=== PATIENT | female | born 1975 | race Caucasian/White ===

== ENCOUNTER → 2017-06-10 | Outpatient (CLI) | payer OTHER | END | disposition home or self-care (01) | LOC: CFH 11:21 | PROVIDERS: ATTEND Internal Medicine | DX: Z12.31 Encounter for screening mammogram for malignant neoplasm of breast (principal) | CPT/HCPCS: 77063; 77067 ==

== ENCOUNTER → 2018-06-05 | Outpatient (CLI) | payer OTHER ==
[2018-06-05 08:13] LABS: ALANINE AMINOTRANSFERASE 46 U/L (12-78); ALBUMIN 3.9 g/dL (3.4-5.0); ANION GAP 9 mmol/L (5-15); CALCIUM 9.2 mg/dL (8.5-10.1); CHLORIDE 108 mmol/L (98-107); CHOLESTEROL, TOTAL 232 mg/dL (140-239); CREATININE 0.75 mg/dL (0.55-1.02)
[2018-06-05 08:15] LABS: ALKALINE PHOSPHATASE 83 U/L (45-117); BILIRUBIN,TOTAL 0.1 mg/dL (0.2-1.0); HDL CHOL % 20 % (28-40); HDL CHOLESTEROL (DIRECT) 46 mg/dL (40-60); LDL CHOLESTEROL,CALCULATED 158 mg/dL (54-169); LDL/HDL RATIO 3.4 (0.5-3.0); TOTAL PROTEIN 7.6 g/dL (6.4-8.2); TRIGLYCERIDES 139 mg/dL (50-200); VLDL CHOLESTEROL 28 mg/dL (0-25)
[2018-06-05 08:30] LABS: HEMOGLOBIN A1C 6.3 % (4.2-6.3)
== END | disposition home or self-care (01) ==
LOC: LAB 07:46
PROVIDERS: ATTEND Internal Medicine
DX: E78.5 Hyperlipidemia, unspecified (principal); R73.02 Impaired glucose tolerance (oral)
CPT/HCPCS: 36415; 80053; 80061; 83036

== ENCOUNTER → 2018-06-27 | Outpatient (CLI) | payer OTHER | END | disposition home or self-care (01) | LOC: CFH 15:43 | PROVIDERS: ATTEND Internal Medicine | DX: Z12.31 Encounter for screening mammogram for malignant neoplasm of breast (principal) | CPT/HCPCS: 77063; 77067 ==

== ENCOUNTER 2019-05-04 14:20 | Emergency (ER) | payer OTHER ==
[~2019-05-04] VITALS: Ht 160 cm; Wt 96.8 kg
[2019-05-04 14:28] VITALS: BP 142/96
[2019-05-04] MEDS ORDERED: IBUPROFEN 200 MG TABLET ONE (15:33)
--- NOTE | 2019-05-04 15:36 | NUR ---
MEDS ADMIN PER JUN.
[2019-05-04] MEDS ORDERED: IBUPROFEN 600 MG TABLET PO ONE (16:00)
== END 2019-05-04 15:48 | disposition home or self-care (01) ==
LOC: ED 15:18
DX: S90.31XA Contusion of right foot, initial encounter (principal); G43.909 Migraine, unspecified, not intractable, without status migrainosus; K21.9 Gastro-esophageal reflux disease without esophagitis; X58.XXXA Exposure to other specified factors, initial encounter; Y93.89 Activity, other specified; Y92.89 Other specified places as the place of occurrence of the external cause; Y99.8 Other external cause status
CPT/HCPCS: 99283

== ENCOUNTER 2019-06-27 13:00 | Day surgery (SDC) | payer OTHER ==
[~2019-06-27] VITALS: Ht 160 cm; Wt 96.6 kg
[~2019-06-27 13:00] MED LIST: AMIT10TA PO; ATOR40TA78 PO; Biotin PO; CEFAZOLIN 1,000 MG ONE; Calcium PO; DEXAMETHASONE 4 MG/ML, 1ML ONE; DULA1.5P SQ; FREM225S SQ; INDO25CA22 PO; L-Lysine PO; MULT-658 PO; OMEP-110 PO; ONDANSETRON 2MG/ML, 2ML ONE; PROPOFOL 10 MG/ML, 20ML ONE; SCOPOLAMINE 1MG PATCH TD ONE; toradol PO
[2019-06-27 13:26] VITALS: BP 124/87
[2019-06-27] MEDS ORDERED: LACTATED RINGERS 1,000 ML IV SCH (13:32)
[2019-06-27 13:44] LABS: HCG UR SG 1.024 (1.003-1.030)
[2019-06-27] MEDS ORDERED: GABAPENTIN 300 MG CAPSULE PO ONE (14:00)
[2019-06-27] MEDS ORDERED: ACETAMINOPHEN 500 MG TABLET PO ONE (14:00)
[2019-06-27] MEDS ORDERED: SCOPOLAMINE 1MG PATCH TD ONE ×2 (15:00)
[2019-06-27] MEDS ORDERED: BUPIVACAINE LIPOSOME/PF 10ML INFIL ONE (15:02)
[2019-06-27] MEDS: MEPERIDINE/PF 25MG/ML,1ML IVPush PRN ×2 (15:59→16:22)
[2019-06-27] MEDS ORDERED: OXYcodone 5 MG/5 ML ORAL.SOL UDC PO PRN (16:00)
[2019-06-27] MEDS ORDERED: FENTANYL PF 100 MCG/2ML IV PRN (16:00)
[2019-06-27] MEDS ORDERED: hydrALAzine 20 MG/ML, 1ML IV PRN (16:00)
[2019-06-27] MEDS ORDERED: HALOPERIDOL 5 MG/ML IV PRN (16:00)
[2019-06-27] MEDS ORDERED: LABETALOL 5MG/ML, 20ML IV PRN (16:00)
[2019-06-27] MEDS ORDERED: PROMETHAZINE 25 MG/ML, 1ML IV PRN (16:00)
[2019-06-27] MEDS ORDERED: HYDROmorphone 1 MG/ML, 1ML INJ IVPush PRN (16:00)
[2019-06-27] MEDS ORDERED: MEPERIDINE/PF 25MG/ML,1ML ONE ×2 (16:01→16:17)
== END 2019-06-27 18:05 | disposition home or self-care (01) ==
LOC: OUT 13:00
PROVIDERS: ATTEND Surgery
DX: K64.4 Residual hemorrhoidal skin tags (principal); E11.9 Type 2 diabetes mellitus without complications; Z79.899 Other long term (current) drug therapy; Z88.5 Allergy status to narcotic agent; Z88.0 Allergy status to penicillin; Z88.8 Allergy status to other drugs, medicaments and biological substances; Z91.018 Allergy to other foods
CPT/HCPCS: 46260; 81025; 88304; 93005; J0690; J1100; J2175; J2405; J2550; J2704; J7120

== ENCOUNTER 2019-10-02 12:21 | Outpatient (CLI) | payer OTHER ==
[~2019-10-02 12:21] MED LIST changes: -CEFAZOLIN 1,000 MG ONE; -DEXAMETHASONE 4 MG/ML, 1ML ONE; -ONDANSETRON 2MG/ML, 2ML ONE; -PROPOFOL 10 MG/ML, 20ML ONE; -SCOPOLAMINE 1MG PATCH TD ONE; +toradol IM; -toradol PO
[2019-10-02] MEDS ORDERED: vitamin c PO (12:53)
[2019-10-02] MEDS ORDERED: RIME75TA PO (12:53)
[2019-10-02 13:29] LABS: BASOPHILS # (AUTO) 0.05 x10^3/uL (0-0.1); BASOPHILS % (AUTO) 1 % (0-1); EOSINOPHILS # (AUTO) 0.16 x10^3/uL (0-0.4); EOSINOPHILS % (AUTO) 2 % (1-7); LYMPHOCYTES # (AUTO) 1.92 x10^3/uL (1-3.4); LYMPHOCYTES % (AUTO) 27 % (22-44); MD NO; MEAN CORPUSCULAR HEMOGLOBIN 28.8 pg (27.0-34.8); MEAN CORPUSCULAR HGB CONC 33.3 g/dL (32.4-35.8); MEAN CORPUSCULAR VOLUME 86.3 fL (80-100); MEAN PLATELET VOLUME 8.2 fL (7.4-10.4); MONOCYTES # (AUTO) 0.54 x10^3/uL (0.2-0.8); MONOCYTES % (AUTO) 8 % (2-9); NEUTROPHILS # (AUTO) 4.37 x10^3/uL (1.8-6.8); NEUTROPHILS % (AUTO) 62 % (42-75); PLATELET COUNT 435 x10^3/uL (130-400); RED BLOOD COUNT 5.02 x10^6/uL (3.82-5.3); RED CELL DISTRIBUTION WIDTH 13.8 % (9.6-15.2)
[2019-10-02 13:31] LABS: MICROSCOPIC NOT IND
[2019-10-02 13:45] LABS: ANION GAP 5 mmol/L (5-15); CALCIUM 9.2 mg/dL (8.5-10.1); CHLORIDE 106 mmol/L (98-107)
[2019-10-02 13:51] LABS: ALANINE AMINOTRANSFERASE 49 U/L (12-78); ALKALINE PHOSPHATASE 120 U/L (45-117); BILIRUBIN,TOTAL 0.5 mg/dL (0.2-1.0); CREATININE 0.83 mg/dL (0.55-1.02); TOTAL PROTEIN 8.2 g/dL (6.4-8.2)
== END 2019-10-02 23:59 | disposition home or self-care (01) ==
LOC: STAR 12:21
PROVIDERS: ATTEND Obstetrics & Gynecology
DX: Z01.818 Encounter for other preprocedural examination (principal); N92.0 Excessive and frequent menstruation with regular cycle
CPT/HCPCS: 36415; 80053; 81003; 84702; 85025; U0001-CS

== ENCOUNTER 2019-10-09 12:46 | Day surgery (SDC) | payer OTHER ==
[~2019-10-09] VITALS: Ht 160 cm; Wt 102.3 kg
[~2019-10-09 12:46] MED LIST changes: +RIME75TA PO; +vitamin c PO
[2019-10-09] MEDS ORDERED: LACTATED RINGERS 1,000 ML IV SCH ×2 (13:17→15:00)
[2019-10-09 13:24] VITALS: BP 121/86
[2019-10-09] MEDS ORDERED: CHLORHEXIDINE 15 ML UDC ONE (13:25)
[2019-10-09] MEDS ORDERED: CHLORHEXIDINE 15 ML UDC MM ONE ×2 (13:30→15:00)
[2019-10-09 13:42] LABS: HCG UR SG 1.019 (1.003-1.030)
[2019-10-09] MEDS ORDERED: BUPIVACAINE/PF-EPI 0.25% 1:200K ONE (14:12)
[2019-10-09] MEDS ORDERED: SILVER NITRATE STICK TP ONE (14:12)
[2019-10-09] MEDS ORDERED: ACETAMINOPHEN 500 MG TABLET ONE (14:38)
[2019-10-09] MEDS ORDERED: SCOPOLAMINE 1MG PATCH TD ONE (14:38)
[2019-10-09] MEDS ORDERED: MIDAZOLAM 1 MG/ML, 2ML ONE (14:46)
[2019-10-09] MEDS ORDERED: FENTANYL PF 250 MCG/5ML ONE (14:46)
[2019-10-09] MEDS ORDERED: OXYcodone 5 MG/5 ML ORAL.SOL UDC PO PRN (15:00)
[2019-10-09] MEDS ORDERED: LABETALOL 5MG/ML, 20ML IV PRN (15:00)
[2019-10-09] MEDS ORDERED: HYDROmorphone 1 MG/ML, 1ML INJ IVPush PRN (15:00)
[2019-10-09] MEDS ORDERED: ACETAMINOPHEN 500 MG TABLET PO ONE (15:00)
[2019-10-09] MEDS ORDERED: PROMETHAZINE 25 MG/ML, 1ML IVPush PRN (15:00)
[2019-10-09] MEDS ORDERED: MEPERIDINE/PF 25MG/0.5ML IVPush PRN (15:00)
[2019-10-09] MEDS ORDERED: HALOPERIDOL 5 MG/ML IV PRN (15:00)
[2019-10-09] MEDS ORDERED: SCOPOLAMINE 1MG PATCH TD SCH (15:00)
[2019-10-09] MEDS ORDERED: DIPHENHYDRAMINE 50 MG/ML, 1ML IVPush PRN (15:00)
[2019-10-09] MEDS ORDERED: hydrALAzine 20 MG/ML, 1ML IV PRN (15:00)
[2019-10-09] MEDS ORDERED: DEXAMETHASONE 4 MG/ML, 1ML ONE (15:52)
[2019-10-09] MEDS ORDERED: CEFAZOLIN 1,000 MG ONE (15:52)
[2019-10-09] MEDS ORDERED: ONDANSETRON 2MG/ML, 2ML ONE (15:52)
[2019-10-09] MEDS ORDERED: PROPOFOL 10 MG/ML, 20ML ONE (15:52)
[2019-10-09] MEDS ORDERED: FENTANYL PF 100 MCG/2ML ONE ×2 (16:09→16:20)
[2019-10-09] MEDS ORDERED: OXYcodone 5 MG/5 ML ORAL.SOL UDC ONE (16:10)
[2019-10-09] MEDS ORDERED: MEPERIDINE/PF 25MG/ML,1ML ONE (16:10)
[2019-10-09] MEDS: FENTANYL PF 100 MCG/2ML IV PRN ×4 (16:10→16:31)
[2019-10-09] MEDS ORDERED: HALOPERIDOL 5 MG/ML ONE (16:20)
== END 2019-10-09 18:30 | disposition home or self-care (01) ==
LOC: OUT 12:46
PROVIDERS: ATTEND Obstetrics & Gynecology
DX: N92.0 Excessive and frequent menstruation with regular cycle (principal); Z11.59 Encounter for screening for other viral diseases; N84.0 Polyp of corpus uteri; G47.33 Obstructive sleep apnea (adult) (pediatric); K21.9 Gastro-esophageal reflux disease without esophagitis; E11.9 Type 2 diabetes mellitus without complications; G43.909 Migraine, unspecified, not intractable, without status migrainosus; Z79.899 Other long term (current) drug therapy; Z88.0 Allergy status to penicillin; Z88.5 Allergy status to narcotic agent; Z88.8 Allergy status to other drugs, medicaments and biological substances; Z98.51 Tubal ligation status; Z98.890 Other specified postprocedural states
CPT/HCPCS: 36415; 58563; 81025; 86850; 86900; 88305; J0690; J1100; J1630; J2175; J2250; J2405; J2704; J3010; J7120

== ENCOUNTER → 2019-11-15 | Outpatient (CLI) | payer OTHER | END | disposition home or self-care (01) | LOC: CFH 12:31 | PROVIDERS: ATTEND Obstetrics & Gynecology | DX: Z12.31 Encounter for screening mammogram for malignant neoplasm of breast (principal) | CPT/HCPCS: 77063; 77067 ==